=== PATIENT | male | born 1985 | race Caucasian/White ===

== ENCOUNTER 2024-10-03 22:00 | Emergency (ER) | payer OTHER, SELFPAY ==
--- NOTE | 2024-10-03 22:08 | DI.CT.S_ITS ---
PROCEDURE: CT SOFT TISSUE NECK W CON INDICATIONS: left sided swelling TECHNIQUE: After the administration of intravenous contrast, 3.0 mm axial sections acquired from the sella to the aortic arch. Additional oblique axial 3.0 mm sections acquired through the pharynx. 3 mm thick coronal and sagittal reformats were generated. For radiation dose reduction, the following was used: automated exposure control. COMPARISON: None. FINDINGS: Image quality: There is streak artifact seen through the level of the shoulders. Lymph nodes: Borderline prominent cervical lymph nodes are seen, with the largest seen on the left at level 2A measuring 13 x 9 mm in greatest axial dimension. Vessels: Visualized vasculature appears patent. Neck spaces: There is a focal fluid collection seen within the left peritonsillar region, measuring 2.2 x 1.8 cm in greatest axial dimension, with a craniocaudal extent of 2.5 cm. Associated mass effect is seen, with narrowing of the airway, which remains patent. Surrounding inflammatory change can be seen, with generalized enhancement of the oropharynx. Mass effect is seen upon the epiglottis, as demonstrated on series 2, image 40. Glands: The parotid and submandibular glands appear normal. Thyroid gland demonstrates no significant abnormality. Miscellaneous: Visualized brain and orbits appear normal. Lung apices appear clear. Superficial soft tissues appear normal. Bones: No suspicious bony lesions. Visualized sinuses and mastoids appear unremarkable. IMPRESSION: Left peritonsillar abscess. Mass effect is seen upon the airway, which remains patent. Mass effect is seen upon the epiglottis. - ENT consultation is recommended. Associated borderline prominent cervical lymph nodes are seen, which are regarded to be reactive. Dictated by: Milan Lieberman M.D. on 10/03/2024 at 21:42 Approved by: Milan Lieberman M.D. on 10/03/2024 at 21:45
[2024-10-03 22:09] VITALS: BP 145/79; PULSE 80; RESP 18; TEMP 37.3; O2SAT 99; BMI 20.1
--- NOTE | 2024-10-03 22:14 | ED_ITS ---
HPI - General Adult General Chief complaint: Upper Respiratory Symptoms Stated complaint: Poss abscess in throat Time Seen by Provider: 10/03/24 22:08 Source: patient Mode of arrival: Ambulatory History of Present Illness HPI narrative: 39-year-old male without any significant past medical history comes into the ED for evaluation throat swelling, sore throat. It has been intermittent nature over the past 2 weeks, states it was better but yesterday got worse. States that he started noticing some swelling/pressure to the back of his throat. He denies any difficulty swallowing speaking eating, however he states that given persistent symptoms wanted to be evaluated in the emergency department. He denies any trauma or falls denies any other symptoms such as headache visual disturbances chest pain shortness breath fever chills nausea vomiting abdominal pain or any other GI/ symptoms time. Related Data Previous Rx's Medication Instructions Recorded benzocaine 20 % mucosal aerosol 1 applic mucous membrane BID PRN 10/03/24 spray mouth irritation #57 grams clindamycin HCl 300 mg capsule 300 mg PO Q6H 2 weeks #56 caps 10/03/24 Allergies Allergy/AdvReac Type Severity Reaction Status Date / Time No Known Drug Allergies Allergy Verified 10/03/24 22:09 Review of Systems Review of Systems Narrative: General: Denies fever, chills, weight loss HEENT: Positive sore throat, left-sided swelling Denies headache, eye drainage, eye irritation, head trauma, voice change Cardiovascular: Denies any chest pain, palpitations, shortness of breath, tachycardia Respiratory: Denies any shortness of breath, cough, wheeze, stridor GI/: Denies any abdominal pain, nausea, vomiting, diarrhea, bright red blood per rectum, melanotic stools, urinary frequency, urinary retention, dysuria, hematuria MSK: Denies any joint pain, muscle pains, swelling Skin: Denies any rashes, lesions, discoloration Neuro: Denies any headache, lightheadedness, dizziness, fainting, weakness Psych: Denies SI/HI Patient History Social History Smoking Status: Current some day smoker Smoking Status: Current some day smoker tobacco type: vaping Exam Narrative Exam Narrative: General: Cooperative, comfortable, well-developed, not in acute distress HEENT: Patient is speaking full sentences protecting airway no voice changes no stridor no trismus, there is swelling noted to the left peritonsillar region however patient not in respiratory distress protecting airway. Normocephalic, atraumatic, PERRLA, normal sclera, eyelids normal, Neck: Active full range of motion, atraumatic Chest: Normal to inspection, negative crepitus, no overlying erythema ecchymosis Respiratory: Normal respiratory effort, not in acute respiratory distress, clear to auscultation bilaterally negative cough, wheeze, tachypnea, rhonchi, rales Cardiology: Regular rate rhythm negative gallop, murmur, rubs GI/: Normal to inspection, soft, nonrigid, no tenderness to palpation, exam deferred MSK: Full range of active range of motion of all 4 extremities, atraumatic Skin: No rashes lesions noted Neuro: Alert awake oriented x3, moves all 4 extremities spontaneously, cranial nerves intact, able to answer all questions appropriately follows commands appropriately Psych: Cooperative, negative suicidal or homicidal ideations Initial Vital Signs Initial Vital Signs: Vital Signs Temperature 99.1 F 10/03/24 22:09 Pulse Rate 80 10/03/24 22:09 Respiratory Rate 18 10/03/24 22:09 Blood Pressure 145/79 H 10/03/24 22:09 Pulse Oximetry 99 10/03/24 22:09 Oxygen Delivery Method Room Air 10/03/24 22:09 Course Orders Ordered: ED Orders 10/03/24 22:08 CT soft tissue neck w con Stat 10/03/24 22:12 Strep Grp A by PCR Rapid Stat 10/03/24 22:18 BMP [Basic Metabolic Panel] Stat CBC Auto Diff [Complete Blood Count AUTO DIFF] Stat Clindamycin Phosphate (Cleocin) 600 mg in 50 mls @ 50 mls/hr IV NOW ONE Stop: 10/03/24 23:27 Last Admin: 10/03/24 22:46 Dose: 50 mls/hr Documented By: ARYA Discontinued Medications Benzocaine (Dermoplast [place] 20% 60 Ml) 1 spray TOP NOW ONE Stop: 10/03/24 22:53 Dexamethasone (Dexamethasone 10 Mg/Ml Vial) 10 mg IV NOW ONE Stop: 10/03/24 22:09 Last Admin: 10/03/24 22:25 Dose: 10 mg Documented By: ARYA Sodium Chloride (Normal Saline 0.9%) 1,000 mls @ 1,000 mls/hr IV BOLUS ONE Stop: 10/03/24 23:07 Last Admin: 10/03/24 22:24 Dose: 1,000 mls/hr Documented By: ARYA Ketorolac Tromethamine (Ketorolac 30 Mg/Ml Vial) 15 mg IV NOW ONE Stop: 10/03/24 22:09 Last Admin: 10/03/24 22:25 Dose: 15 mg Documented By: ARYA Lidocaine/Epinephrine (Lidocaine 2% W/Epi Inj 10 Ml Vial) 10 ml INJ NOW ONE Stop: 10/03/24 22:53 Vital Signs Vital signs: Vital Signs - 8 hr 10/03/24 22:09 Temperature 99.1 F Pulse Rate 80 Respiratory Rate 18 Blood Pressure 145/79 H Pulse Oximetry 99 Oxygen Delivery Method Room Air Medical Decision Making Differential Diagnosis Differential Diagnosis: Peritonsillar abscess, retropharyngeal abscess, strep throat Lab Data 10/03/24 22:18 10/03/24 22:18 Labs: Lab Results 10/03/24 Range/Units 22:18 WBC 15.7 H (4.5-11.0) X10^3/uL RBC 4.71 (4.5-5.9) X10^6/uL Hgb 14.9 (13.5-17.5) g/dL Hct 43.8 (41-53) % MCV 93.0 (80-100) fL MCH 31.8 (26-34) PG MCHC 34.1 (30-36) % RDW 12.7 (11.6-14.8) % Plt Count 374 (150-400) X10^3/uL Neut % (Auto) 80.7 H (50-75) % Lymph % (Auto) 10.2 L (25-40) % [place] % (Auto) 8.7 (3-14) % Eos % (Auto) 0.2 L (2-4) % Baso % (Auto) 0.2 (0-2) % Neut # (Auto) 50226 H (9646-0321) /uL Lymph # (Auto) 1600 (6053-0288) /uL [place] # (Auto) 1400 H (0-900) /uL Eos # (Auto) 0 (0-450) /uL Baso # (Auto) 0 (0-100) /uL Sodium 138 (137-145) mmol/L Potassium 3.8 (3.4-5.1) mmol/L Chloride 101 (98-107) mmol/L Carbon Dioxide 25 (22-32) mmol/L BUN 10 (9-20) mg/dL Creatinine 0.80 (0.66-1.25) mg/dL Estimated GFR > 60 (>60) mL/min BUN/Creatinine Ratio 12.5 (6-22) Glucose 107 H (70-100) mg/dL Calcium 9.0 (8.4-10.2) mg/dL Imaging Data CT soft tissue neck: Radiologist's Impression: [place] [address] CT Scan Report Signed Patient: Randall Foy MR#: [id number] : 1985 Acct:[id number] Age/Sex: 39 / M Date of Service: 10/03/24 Loc: ED Accession Number: [id number] Procedure: CT soft tissue neck w con Ordering Provider: Cesario Sunshine D.O. PROCEDURE: CT SOFT TISSUE NECK W CON INDICATIONS: left sided swelling TECHNIQUE: After the administration of intravenous contrast, 3.0 mm axial sections acquired from the sella to the aortic arch. Additional oblique axial 3.0 mm sections acquired through the pharynx. 3 mm thick coronal and sagittal reformats were generated. For radiation dose reduction, the following was used: automated exposure control. COMPARISON: None. FINDINGS: Image quality: There is streak artifact seen through the level of the shoulders. Lymph nodes: Borderline prominent cervical lymph nodes are seen, with the largest seen on the left at level 2A measuring 13 x 9 mm in greatest axial dimension. Vessels: Visualized vasculature appears patent. Neck spaces: There is a focal fluid collection seen within the left peritonsillar region, measuring 2.2 x 1.8 cm in greatest axial dimension, with a craniocaudal extent of 2.5 cm. Associated mass effect is seen, with narrowing of the airway, which remains patent. Surrounding inflammatory change can be seen, with generalized enhancement of the oropharynx. Mass effect is seen upon the epiglottis, as demonstrated on series 2, image 40. Glands: The parotid and submandibular glands appear normal. Thyroid gland demonstrates no significant abnormality. Miscellaneous: Visualized brain and orbits appear normal. Lung apices appear clear. Superficial soft tissues appear normal. Bones: No suspicious bony lesions. Visualized sinuses and mastoids appear unremarkable. IMPRESSION: Left peritonsillar abscess. Mass effect is seen upon the airway, which remains patent. Mass effect is seen upon the epiglottis. - ENT consultation is recommended. Associated borderline prominent cervical lymph nodes are seen, which are regarded to be reactive. MDM Narrative Medical decision making narrative: 39-year-old male without past medical history presents for left-sided throat swelling pain started 2 weeks ago intermittent nature worsening yesterday. On evaluation patient with swelling to the left-sided peritonsillar region however no voice changes no stridor no trismus he is speaking full sentences protecting airway tolerating secretions is able to swallow p.o. liquids and solids here. Patient had lab work CT scan performed here in the emergency department. CT scan showing left peritonsillar abscess however patent airway. Patient got 1st dose antibiotics here IV clindamycin. I had a discussion with the patient in regards to aspiration of the peritonsillar abscess, he states that he would like to try antibiotics only and follow up with ENT at this time. Patient is well- appearing nontoxic tolerating his secretions speaking full sentences protecting airway able to tolerate p.o. liquids and solids here. He was given strict return precautions he verbalized understanding of this and agrees to being discharged home with outpatient follow up Discharge Plan Departure Patient Disposition: Home Clinical Impression: Abscess, peritonsillar Instructions: DI for Peritonsillar Abscess -- Child Activity Restrictions/Additional Instructions: Please return to the emergency department if you have any difficulty swallowing or breathing Please follow up with ENT and primary care Please read the discharge instructions sheet carefully and bring all papers to all doctor follow-up visits, as it may contain information that your doctor may want to see. Disease processes change and evolve, if your symptoms worsen or if you develop any new symptoms that are concerning to you please return for evaluation. Your evaluation today does not show any evidence of any life- threatening/serious illnesses requiring admission to the hospital or surgery. Please follow-up with your doctor for re-evaluation in approximately 1 day. Seek immediate medical attention for any worrisome symptoms. *If you do not have a primary care provider please contact the [facility] Resource line at [phone]. They will ask some questions about your medical history and help get you set up with a doctor in the community. Prescriptions: New clindamycin HCl 300 mg capsule 300 mg PO Q6H 14 Days Qty: 56 0RF benzocaine 20 % aerosol,spray 1 applic mucous membrane BID PRN (Reason: mouth irritation) Qty: 57 0RF Referrals: Kushal Eubanks MD [Other] - As soon as possible Jeane Shook ARNP [Primary Care Provider] - Stand Alone Forms: Patient Portal/API/Survey
[2024-10-03 22:22] VITALS: PULSE 84; O2SAT 96
[2024-10-03] MEDS: SODIUM CHLORIDE 0.9% 1,000 ML 1000 ML IV (22:24)
[2024-10-03] MEDS: KETOROLAC 30 MG/ML VIAL 15 MG IV (22:25)
[2024-10-03] MEDS: DEXAMETHASONE 10 MG/ML VIAL IV (22:25)
--- NOTE | 2024-10-03 22:28 | PC.NURSE ---
Pt ambulatory to CT with information technology architect
[2024-10-03 22:30] VITALS: PULSE 90; O2SAT 99
[2024-10-03 22:31] VITALS: BP 154/67; PULSE 81; O2SAT 98
[2024-10-03] MEDS: CLINDAMYCIN 600 MG/50 ML PIGGYBACK 50 MG IV (22:46)
[2024-10-03 22:51] LABS: Add Manual Diff / Slide Review NO; Basophils Absolute Auto 0 /uL (0-100); Basophils Percent Auto 0.2 % (0-2); Eosinophils Absolute Auto 0 /uL (0-450); Eosinophils Percent Auto 0.2 % (2-4); Hematocrit 43.8 % (41-53); Hemoglobin 14.9 g/dL (13.5-17.5); Lymphocytes Absolute Auto 1600 /uL (1100-4500); Lymphocytes Percent Auto 10.2 % (25-40); Mean Corpuscular HGB Conc 34.1 % (30-36); Mean Corpuscular Hemoglobin 31.8 PG (26-34); Monocytes Absolute Auto 1400 /uL (0-900); Monocytes Percent Auto 8.7 % (3-14); Neutrophils Absolute Auto 12700 /uL (1500-7000); Neutrophils Percent Auto 80.7 % (50-75); Platelet Count 374 X10^3/uL (150-400); Red Blood Cell Count 4.71 X10^6/uL (4.5-5.9); Red Cell Distribution Width 12.7 % (11.6-14.8); White Blood Cell Count 15.7 X10^3/uL (4.5-11.0)
[2024-10-03 23:00] VITALS: BP 123/73; PULSE 86; RESP 18; O2SAT 97
[2024-10-03 23:00] LABS: BUN Creatinine Ratio 12.5 (6-22); Blood Urea Nitrogen 10 mg/dL (9-20); Carbon Dioxide 25 mmol/L (22-32); Chloride 101 mmol/L (98-107); Estimated Glomerular Filt Rate > 60 mL/min (>60); Glucose 107 mg/dL (70-100); HEMOLYSIS < 15 (0-50); Potassium 3.8 mmol/L (3.4-5.1); Sodium 138 mmol/L (137-145)
[2024-10-03 23:30] VITALS: BP 117/66; PULSE 83; RESP 14; O2SAT 96
== END 2024-10-04 00:09 | disposition home or self-care (01) ==
PROVIDERS: Emergency Provider Student in an Organized Health Care Education/Training Program; PCP Nurse Practitioner Family
DX: J36 Peritonsillar abscess (principal)
CPT/HCPCS: 36415; 70491; 80048; 85025; 96365; 96375; 99284; J1100; J1885; Q9967